=== PATIENT | female | born 1995 | race Caucasian/White ===

== ENCOUNTER 2018-03-10 05:47 | Emergency (ER) | payer OTHER ==
[2018-03-10 05:53] VITALS: BP 129/81
[2018-03-10] MEDS ORDERED: DEXAMETHASONE 10 MG/ML VIAL PO STA (06:06)
--- NOTE | 2018-03-10 06:09 | ED Physician Documentation ---
PD HPI SKIN - Stated complaint Stated Complaint: BODY RASH - Chief complaint Chief Complaint: Wound - History obtained from History obtained from: Patient - History of Present Illness Timing - onset: How many days ago (4) Timing - duration: Days (4) Timing - details: Gradual onset, Still present Location: Bodywide Quality / character: Itchy, Raised, Swelling Improved by: Benadryl Contributing factors: Exposed to medication Similar symptoms before: Has not had sx before Recently seen: Clinic - Additional information Additional information: 23-year-old female was recently seen in the clinic and given 1 g of azithromycin. This was 7 days ago. 3 days later she began to develop a rash with urticaria and itching. She has had continued itching now for the past 4 days and it is persisted. She has taken some Benadryl with some improvement but only took several doses. Review of Systems Constitutional: denies: Fever Eyes: denies: Decreased vision Ears: denies: Ear pain, Drainage/discharge Nose: denies: Congestion Throat: denies: Sore throat Cardiac: denies: Chest pain / pressure, Palpitations Respiratory: denies: Dyspnea, Cough GI: denies: Nausea, Vomiting : denies: Dysuria Skin: reports: Rash Musculoskeletal: denies: Neck pain, Back pain, Extremity pain PD PAST MEDICAL HISTORY - Past Medical History Past Medical History: No - Past Surgical History Past Surgical History: No - Present Medications Home Medications: Ambulatory Orders Medication Instructions Recorded Confirmed predniSONE [Deltasone] 40 mg PO DAILY 5 Days #10 tablet 03/10/18 - Allergies Allergies/Adverse Reactions: Allergies Allergy/AdvReac Type Severity Reaction Status Date / Time No Known Drug Allergies Allergy Verified 03/10/18 05:52 - Social History Does the pt smoke?: Yes Smoking Status: Current every day smoker Does the pt drink ETOH?: No Does the pt have substance abuse?: No - Immunizations Immunizations are current?: Yes - POLST Patient has POLST: No PD ED PE NORMAL - Vitals Vital signs reviewed: Yes (hypertensive ) - General General: Alert and oriented X 3, No acute distress, Well developed/nourished - HEENT HEENT: Atraumatic, PERRL, EOMI - Neck Neck: Supple, no meningeal sign, No bony TTP - Cardiac Cardiac: RRR, No murmur - Respiratory Respiratory: No respiratory distress, Clear bilaterally - Back Back: No CVA TTP, No spinal TTP - Derm Derm: Normal color, Warm and dry, Other (There are urticaria over the upper ext and sparing the face. The patient indicates the rash is bodywide. 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 her on a short course of prednisone and instructed to use an antihistamine daily nonsedating. - Sepsis Event Vital Signs: Vital Signs - 24 hr 03/10/18 05:49 Temperature 36.7 C Heart Rate 92 Respiratory 16 Rate Blood Pressure 129/81 H O2 Saturation 98 Oxygen O2 Source Room air Departure - Departure Disposition: 01 Home, Self Care Clinical Impression: Allergic reaction caused by a drug Qualifiers: Encounter type: initial encounter Qualified Code(s): T78.40XA - Allergy, unspecified, initial encounter Condition: Stable Instructions: ED Drug React Allergic Follow-Up: [facility] [Provider Group] Prescriptions: predniSONE [Deltasone] 40 mg PO DAILY 5 Days #10 tablet Comments: Today it appears you have had a reaction to a azithromycin. Do not take this medication again. Take prednisone as prescribed and take Zyrtec or Erica daily for the next 2 days.
[2018-03-10] MEDS ORDERED: CHERRY SYRUP 10 ML UDC PO ONE (06:11)
== END 2018-03-10 06:19 | disposition home or self-care (01) ==
LOC: ED 05:47
DX: L27.0 Generalized skin eruption due to drugs and medicaments taken internally (principal); T36.3X5A Adverse effect of macrolides, initial encounter; L29.9 Pruritus, unspecified; L50.9 Urticaria, unspecified; F17.200 Nicotine dependence, unspecified, uncomplicated
CPT/HCPCS: 99283; A9270